=== PATIENT | male | born 1990 | race Caucasian/White ===

== ENCOUNTER 2020-05-21 17:37 | Emergency (ER) | payer SELFPAY ==
[~2020-05-21] VITALS: Ht 185.4 cm; Wt 114.1 kg
--- NOTE | 2020-05-21 18:05 | NUR ---
SERVICE DESK MANAGER: PT TO ROOM FROM MURALI DIETZ
[2020-05-21] MEDS ORDERED: HALOPERIDOL 5 MG/ML ONE ×2 (18:18→20:33)
[2020-05-21] MEDS ORDERED: HALOPERIDOL 5 MG/ML IV ONE ×2 (18:30→20:30)
[2020-05-21] MEDS ORDERED: SODIUM CHLORIDE FLUSH 10ML SYR IVF ONE (18:30)
[2020-05-21] MEDS ORDERED: SODIUM CHLORIDE 0.9% 1,000ML IVBOLUS ONE (18:30)
--- NOTE | 2020-05-21 18:30 | NUR ---
PT AMBULATORY TO ROOM FROM TRIAGE. PT CHANGED INTO GOWN, MONITORS IN PLACE. CALL LIGHT WITHIN REACH. NO NEEDS AT THIS TIME.
[2020-05-21 18:41] LABS: BASOPHILS % (AUTO) 0 % (0-1); EOSINOPHILS % (AUTO) 0 % (1-7); LYMPHOCYTES % (AUTO) 9 % (22-44); MEAN CORPUSCULAR HGB CONC 34.8 g/dL (33.2-36.2); MEAN PLATELET VOLUME 9.3 fL (7.4-10.4); MONOCYTES % (AUTO) 5 % (2-9); NEUTROPHILS % (AUTO) 86 % (42-75); PLATELET COUNT 381 x10^3/uL (130-400); RED BLOOD COUNT 4.95 x10^6/uL (4.38-5.82); RED CELL DISTRIBUTION WIDTH 12.3 % (9.4-14.8)
[2020-05-21 18:42] LABS: MD NO
[2020-05-21 18:54] LABS: ALANINE AMINOTRANSFERASE 29 U/L (12-78); ALBUMIN 4.3 g/dL (3.4-5.0); ANION GAP 10 mmol/L (5-15); CALCIUM 9.6 mg/dL (8.5-10.1); CHLORIDE 106 mmol/L (98-107); CREATININE 1.16 mg/dL (0.7-1.3)
[2020-05-21 18:56] LABS: ALKALINE PHOSPHATASE 66 U/L (45-117); BILIRUBIN,TOTAL 0.9 mg/dL (0.2-1.0)
[2020-05-21] MEDS ORDERED: METOCLOPRAMIDE 5 MG/ML, 2ML IVPush ONE (19:00)
[2020-05-21] MEDS ORDERED: MORPHINE SULFATE 4 MG/ML, 1ML IVPush ONE (19:00)
[2020-05-21] MEDS ORDERED: DIPHENHYDRAMINE 50 MG/ML, 1ML IVPush ONE (19:00)
--- NOTE | 2020-05-21 19:13 | NUR ---
RECEIVED REPORT FROM MARY ANN DICKINSON. PT RESTING ON NETOGLORY. NADN. SOLO.
--- NOTE | 2020-05-21 19:32 | NUR ---
PT STATES HE FEELS MUCH IMPROVED AFTER RECEIVING HALDOL. DENIES ABD PAIN AND NAUSEA. ERP DR. SANCHEZ AWARE. STATES NO NEED FOR BENADRYL, REGLAN, MORPHINE COMBINATION.
[2020-05-21] MEDS ORDERED: OMNIPAQUE 350 MG/ML, 100ML BOTTLE ONE (20:03)
[2020-05-21 20:13] VITALS: BP 129/79
--- NOTE | 2020-05-21 20:14 | NUR ---
PT RESTING ON GURNEY. NADN. SOLO.
--- NOTE | 2020-05-21 20:16 | NUR ---
PT CHART REVIEWED AND PLACED FOR RECHECK.
== END 2020-05-21 21:01 | disposition home or self-care (01) ==
LOC: ED 20:45
DX: R11.2 Nausea with vomiting, unspecified (principal); R10.84 Generalized abdominal pain
CPT/HCPCS: 36415; 74177; 80053; 83690; 85025; 96361; 96374; 96376; 99285; J1630; J7030; Q9967